=== PATIENT | female | born 1975 | race Caucasian/White ===

== ENCOUNTER 2018-03-25 15:55 | Outpatient (CLI) | END 2018-03-25 15:56 | disposition home or self-care (01) | LOC: CAR 15:55 | PROVIDERS: ATTEND Nurse Practitioner Family | DX: R07.89 Other chest pain (principal); R00.0 Tachycardia, unspecified; Z72.0 Tobacco use; Z82.49 Family history of ischemic heart disease and other diseases of the circulatory system | CPT/HCPCS: 36415; 80053; 80061; 84443; 85025; 93005; 93010 ==

== ENCOUNTER 2018-03-30 14:54 | Emergency (ER) ==
[2018-03-30 15:03] VITALS: BP 164/105; TEMP 97.4; BMI 25.6
[2018-03-30] MEDS ORDERED: ASPIRIN CHEWABLE PO STA (15:04)
[2018-03-30] MEDS ORDERED: MORPHINE 4 MG/ML SYRINGE IVP STA (15:04)
[2018-03-30] MEDS ORDERED: ZOFRAN 4 MG/2 ML IVP STA (15:04)
[2018-03-30] MEDS ORDERED: LOPRESSOR IVP STA (15:05)
--- NOTE | 2018-03-30 15:09 | ED.PDOC ---
General ED Provider: Dr. DORY CONROY Chief Complaint: Chest Pain Stated Complaint: CHEST PAIN Time Seen by Physician: 15:00 (CHEST PAIN OCCURE ABOUT 1 HR AGO ) Mode of Arrival: Wheelchair Information Source: Patient, Family Exam Limitations: No limitations (HISTORY OBTAINED FROM MR PHAM A BOYFRIEND OF 23 YEARS ) Primary Care Provider: RASHID LAIRD Nursing and Triage Documentation Reviewed and Agree: Yes Does patient meet sepsis criteria?: No System Inflammatory Response Syndrome: Not Applicable Sepsis Protocol: For patient's 13 years and over: Temp is 96.8 and below OR 101 and greater Pulse >90 BPM Resp >20/minute Acutely Altered Mental Status Are patient's symptoms suggestive of a new infection, such as: -Pneumonia -Skin, Soft Tissue -Endocarditis -UTI -Bone, Joint Infection -Implantable Device -Acute Abdominal Infection -Wound Infection -Meningitis -Blood Stream Catheter Infection -Unknown Cardiovascular Complaint Exam - Chest Pain Complaint/Exam Onset: Sudden Duration: 1 HR AGO Symptoms Are: Still present Timing: Constant Length of Chest Pain Episodes: 1 HR PT WAS SWEATING AT WORK AT [employer] SHE SMOKES Initial Severity: Severe Current Severity: Severe Location: Reports: Midsternal Pain Radiates: Reports: Neck (THROAT) Character: Reports: Tightness Aggravating: Reports: None Alleviating: Reports: None Associated Signs and Symptoms: Denies: Diaphoresis, Nausea, Vomiting, Fever, Palpitations, Cough, Hemoptysis, Back pain, Abdominal pain, Dizziness, Short of air, Calf pain, Calf swelling Related History: Reports: Similar episode Related Surgical History: Reports: None History of Healthcare-Acquired Pneumonia: Reports: No AMI/ACS Risk Factors: Reports: Smoking TAD Risk Factors: Reports: Smoking Pulmonary Embolism Risk Factors: Reports: None Prior Care for this Complaint: No Recent Stress Test: No Recent Echo/LV Function: No JVD Present: No Subcutaneous Emphysema Present: No Diminshed Breath Sounds: No Reproducible Chest Wall Pain: No Bilateral Pulses Present: No If Risk Factors for AMI/ACS Consider: EKG, Cardiac Enzymes Differential Diagnoses: Acute WA Quality Indicators For Acute WA or Cardiac Chest Pain: EKG in 10min. Review of Systems - Review Of Systems Constitutional: Reports: No symptoms Eyes: Reports: No symptoms Ears, Nose, Mouth, Throat: Reports: No symptoms Respiratory: Reports: No symptoms Cardiac: Reports: Chest pain GI: Reports: No symptoms : Reports: No symptoms Musculoskeletal: Reports: No symptoms Skin: Reports: No symptoms Neurological: Reports: No symptoms Endocrine: Reports: No symptoms Hematologic/Lymphatic: Reports: No symptoms All Other Systems: Reviewed and Negative Past Medical History - Past Medical History Previously Healthy: Yes Endocrine: Reports: None Cardiovascular: Reports: None Respiratory: Reports: None Hematological: Reports: None Gastrointestinal: Reports: None Genitourinary: Reports: None Neuro/Psych: Reports: None Musculoskeletal: Reports: None Cancer: Reports: None Last Menstrual Period: NOW - Surgical History General Surgical History: Reports: None - Family History Family History: Reports: None - Social History Smoking Status: Current every day smoker Hx Substance Use: No Alcohol Screening: None - Immunizations Tetanus Shot up to Date: Yes Physical Exam - Physical Exam Appearance: Well-appearing, No pain distress, Well-nourished Eyes: PAUL, EOMI, Conjunctiva clear ENT: Ears normal, Nose normal, Oropharynx normal Respiratory: Airway patent, Breath sounds clear, Breath sounds equal, Respirations nonlabored Cardiovascular: RRR, Pulses normal, No rub, No murmur GI/: Soft, Nontender, No masses, Bowel sounds normal, No Organomegaly Musculoskeletal: Normal strength, ROM intact, No edema, No calf tenderness Skin: Warm, Dry, Normal color Neurological: Sensation intact, Motor intact, Reflexes intact, Cranial nerves intact, Alert, Oriented Psychiatric: Affect appropriate, Mood appropriate Interpretation - [facility] Manager Rate: Normal Rhythm: Sinus - EKG Interpretation Rate: Normal Rhythm: Sinus (ST ELEVATION IN ANTROLATERAL LEADS) Physician Notification - Case Discussed Physician Notified: KATHARINE CRAMER Time of Notification: 15:15 (TRANSFER NOW) Critical Care Note - Critical Care Note Total Time (mins): 1 Course - Course Orders, Labs, Meds: Orders Category Date Time Status EKG-(ED ONLY) Stat CARDIO 03/30/18 15:04 Ordered ED IV/MEDIPORT/POWERPORT .ONCE EMERGENCY 03/30/18 15:04 Ordered CBC W/ AUTO DIFF Stat LAB 03/30/18 15:03 Ordered COMPREHENSIVE METABOLIC PANEL Stat LAB 03/30/18 15:03 Ordered CREATINE KINASE Stat LAB 03/30/18 15:03 Ordered PARTIAL THROMBOPLASTIN TIME Stat LAB 03/30/18 15:04 Ordered PT WITH INR Stat LAB 03/30/18 15:04 Ordered SERUM Stat LAB 03/30/18 Ordered TROPONIN I Stat LAB 03/30/18 15:03 Ordered 0.9 % Sodium Chloride [Saline Flush] MEDS 03/30/18 15:03 Ordered 1 syr IVF PRN PRN Aspirin [Aspirin Chewable] MEDS 03/30/18 15:04 Stat 324 mg PO ONCE STA Metoprolol Tartrate [Lopressor] MEDS 03/30/18 15:05 Stat 5 mg IVP ONCE STA Morphine Sulfate [Morphine 4 mg/ml Syringe] MEDS 03/30/18 15:04 Stat 4 mg IVP ONCE STA Ondansetron HCl/Pf [Zofran 4 mg/2 ml] MEDS 03/30/18 15:04 Stat 4 mg IVP ONCE STA CHEST, 1V AP ONLY Stat RADS 03/30/18 15:04 Ordered Medications Generic Name Dose Route Start Last Admin Trade Name Freq PRN Reason Stop Dose Admin Sodium Chloride 1 syr 03/30/18 15:03 Saline Flush IVF PRN PRN To flush IV Discontinued Medications Generic Name Dose Route Start Last Admin Trade Name Freq PRN Reason Stop Dose Admin Aspirin 324 mg 03/30/18 15:04 03/30/18 15:13 Aspirin Chewable PO 03/30/18 15:05 324 mg ONCE STA Administration Metoprolol Tartrate 5 mg 03/30/18 15:05 Lopressor IVP 03/30/18 15:06 ONCE STA Morphine Sulfate 4 mg 03/30/18 15:04 Morphine 4 Mg/Ml Syringe IVP 03/30/18 15:05 ONCE STA Ondansetron HCl 4 mg 03/30/18 15:04 Zofran 4 Mg/2 Ml IVP 03/30/18 15:05 ONCE STA Vital Signs: Temp Pulse Resp BP Pulse Ox 03/30/18 14:58 97.4 F L 77 24 164/105 H 98 FLAQUITO Risk Score FLAQUITO Risk Score: Risk Score Odds of by 30D 0 0.1 (0.1-0.2) 1 0.3 (0.2-0.3) 2 0.4 (0.3-0.5) 3 0.7 (0.6-0.9) 4 1.2 (1.0-1.5) 5 2.2 (1.9-2.6) 6 3.0 (2.5-3.6) 7 4.8 (3.8-6.1) Departure - Departure Time of Disposition: 16:00 Disposition: TSF SHORT-TRM HOSP Discharge Problem: Acute anterolateral wall WA Instructions: Heart Attack (DC) Condition: Stable Pt referred to PMD for follow-up: Yes IPMP verified?: No Additional Instructions: Please call your Family Physician as soon as possible to schedule a follow-up appointment. Allergies/Adverse Reactions: Allergies Penicillins Allergy (Severe, Unverified 06/10/14 13:40) rash Home Medications: Ambulatory Orders Ibuprofen 200 mg PO PRN 06/28/16 Disposition Discussed With: Patient, Family
== END 2018-03-30 15:32 | disposition short-term general hospital (02) ==
LOC: ED 14:54
DX: I21.09 ST elevation (STEMI) myocardial infarction involving other coronary artery of anterior wall (principal); F17.210 Nicotine dependence, cigarettes, uncomplicated
CPT/HCPCS: 36415; 80053; 82550; 84484; 84703; 85025; 85610; 85730; 93005; 93010; 96374; 96375; 99285